=== PATIENT | male | born 1945 | race Caucasian/White ===

== ENCOUNTER 2016-11-23 09:30 | Day surgery (SDC) | payer OTHER, MEDICARE ==
[2016-11-20 13:48] VITALS: BMI 36.2
[2016-11-23] MEDS ORDERED: MIDAZOLAM HCL 2 MG/2 ML SINGLE DOSE VIAL ONE (11:50)
[2016-11-23] MEDS ORDERED: PROPOFOL 20 ML ONE ×2 (11:50)
[2016-11-23] MEDS ORDERED: ROCURONIUM BROMIDE 50 MG/5 ML VIAL ONE (11:58)
[2016-11-23] MEDS ORDERED: LIDOCAINE 1%-EPI 1:100,000 30 ML MDV IJ ONE (12:38)
[2016-11-23] MEDS ORDERED: NEOSTIGMINE METHYLSULFATE 0.5 MG/ML - 10 ML MDV ONE (12:55)
[2016-11-23] MEDS ORDERED: GLYCOPYRROLATE 0.2 MG/1 ML VIAL ONE (12:56)
[2016-11-23] MEDS ORDERED: ePHEDrine SULFATE 50 MG/1 ML AMPULE ONE (12:57)
[2016-11-23] MEDS ORDERED: LIDOCAINE 1%/EPI 1:100000 (20 ML MULTI DOSE VIAL) INF ONE (13:30)
[2016-11-23] MEDS ORDERED: NITROGLYCERIN 2% OINTMENT - 1GM PACKET TD ONE (13:45)
[2016-11-23] MEDS ORDERED: oxyCODONE HCL 5 MG TABLET PO PRN (13:57)
[2016-11-23] MEDS ORDERED: ONDANSETRON 4 MG/2 ML VIAL IVPUSH PRN (13:57)
[2016-11-23] MEDS ORDERED: HEPARIN NA (PORCINE) 5,000 UNITS/ML 1ML VIAL ONE (14:07)
[2016-11-23] MEDS ORDERED: ONDANSETRON 4 MG/2 ML VIAL IVPB PRN (14:13)
[2016-11-23] MEDS ORDERED: morphine CARPU-JECT 10 MG/1 ML DISP.SYRIN IVPUSH PRN (14:13)
[2016-11-23] MEDS ORDERED: LACTATED RINGERS SOLUTION 1,000 ML IV SCH (14:15)
[2016-11-23] MEDS ORDERED: ceFAZolin SODIUM 1 GM VIAL ONE (16:15)
[2016-11-23] MEDS: HEPARIN NA (PORCINE) 5,000 UNITS/ML 1ML VIAL TP SCH ×3 (17:30→23:08)
[2016-11-23] MEDS: CEFAZOLIN 1 GM/D5W 50 ML IVPB SCH ×2 (17:30→21:18)
[2016-11-23] MEDS ORDERED: PATIENT'S OWN MEDICATION (NON-FORMULARY) (Travoprost [Travatan Z] 5 ML) OS SCH (22:00)
[2016-11-23] MEDS ORDERED: ATORVASTATIN CA 80 MG TABLET (FP) PO SCH (22:00)
[2016-11-23] MEDS: oxyCODONE HCL 5 MG TABLET PO PRN (22:28)
[2016-11-24] MEDS ORDERED: oxyCODONE HCL 5 MG TABLET PO ONE (00:51)
[2016-11-24] MEDS: CEFAZOLIN 1 GM/D5W 50 ML IVPB SCH ×2 (02:58→09:14)
[2016-11-24] MEDS: HEPARIN NA (PORCINE) 5,000 UNITS/ML 1ML VIAL TP SCH ×3 (02:59→11:12)
[2016-11-24] MEDS: oxyCODONE HCL 5 MG TABLET PO PRN ×2 (03:01→10:13)
[2016-11-24 06:31] VITALS: BP 125/77; PULSE 78; TEMP 98.4
--- NOTE | 2016-11-24 07:58 | PN ---
Progress Note (short form) - Note Progress Note: Flap 100% viable. Bleeding has stopped, redressed, ambulating, pain well controlled OK for discharge with instructions
--- NOTE | 2016-11-24 09:00 | OP ---
DATE OF OPERATION: 11/23/2016 TITLE OF PROCEDURE: Transfer of previously delayed forehead flap to nose with debridement of temporary AlloDerm dressing on nose, secondary scalp flap reconstruction of forehead defect. ATTENDING SURGEON: Sylvester Richardson MD ANESTHESIA: General endotracheal anesthesia with a total of 20 mL of 1% lidocaine with 1:100,000 epinephrine injected into the surrounding subcutaneous tissues. The patient is marked in the holding area. Is awake and aware of all incisions and resulting scars. Risks, benefits, and alternatives to the procedure, including partial or complete flap failure, are discussed. He understands and agrees to proceed. Patient brought to the operating room and placed in a supine position. Ancef 2 g are given preoperatively. Sequential compression stockings are applied bilaterally. He is prepped and draped in the standard surgical fashion. A timeout is called. Patient, procedure, site, and side are verified. The previously elevated and sewn flap on the forehead is then reelevated by gentle spreading of the scissors in the incision lines and the flap is atraumatically dissected and remobilized. With the flap temporarily sutured to the defect without tension, closure of the forehead is performed. Closure of the forehead is then performed, first by scoring of the galea both medially and laterally. This left a segment superiorly that could not be closed primarily. Secondary scalp flap is then planned and is back cut towards the midline 's peak. The galea of the flap is scored. Flap is inset into the donor site defect and its donor site is able to be closed primarily. This is done with a series of interrupted skin nazanin. The remainder of the donor site is able to be closed with a series of interrupted buried deep dermal 3-0 Monocryl suture followed by a running 3-0 Prolene suture, leaving a wide berth for the flap. The flap appears slightly congested while in position on the nose. Considering the decision is made to not sacrifice additional tissue on the nose until more durable viability of the flap can be determined, the AlloDerm that had been sewn to the defect is then debrided. The sutures along the edge of the AlloDerm and the nasal wound are removed and the edges of the defect are prepared for flap transfer. The flap is inset to the defect with a series of interrupted 5-0 nylon suture. The left edge of the flap is left not inset for purposes of allowing bleeding and drainage to prevent congestion of the flap. is applied to the tip of the flap. The flap's color after slight bleeding and10 minutes while in position is significantly less congested and appears viable with good capillary refill. The donor site is dressed with bacitracin and Xeroform; 4 x 4 gauze is placed around the flap to allow for bleeding to be absorbed. The patient is awoken from anesthesia, transferred to recovery without complication. Jose [id number]
[2016-11-24] MEDS ORDERED: RAMIPRIL 5 MG CAPSULE (FP) PO SCH (10:00)
[2016-11-24] MEDS ORDERED: amLODIPine BESYLATE 2.5 MG TABLET (FP) PO SCH (10:00)
[2016-11-24] MEDS ORDERED: ATENOLOL 50 MG TABLET (FP) PO SCH (10:00)
[2016-11-24] MEDS ORDERED: LATANOPROST 0.005% OPHTH SOLN 2.5ML BOTTLE OU SCH (22:00)
== END 2016-11-24 12:00 | disposition home or self-care (01) ==
LOC: FASU 09:30 → FM/S 14:13 → FASU 11-24 12:00
PROVIDERS: ATTEND Plastic Surgery
PROC: 0HB0XZZ Excision of Scalp Skin, External Approach (ICD-10-PCS; 2016-11-23)
PROC: 0HR1X74 Replacement of Face Skin with Autologous Tissue Substitute, Partial Thickness, External Approach (ICD-10-PCS; principal; 2016-11-23 12:36)
DX: C44.311 Basal cell carcinoma of skin of nose (principal)
CPT/HCPCS: 94760; J1644

== ENCOUNTER 2016-12-20 06:24 | Day surgery (SDC) | payer OTHER, MEDICARE ==
[2016-12-14 12:34] VITALS: BMI 36.2
[2016-12-20] MEDS ORDERED: BACITRACIN 30 GM TUBE TOPICAL OINTMENT ONE (07:17)
[2016-12-20] MEDS ORDERED: LIDOCAINE 1%/EPI 1:100000 (20 ML MULTI DOSE VIAL) ONE (07:17)
[2016-12-20] MEDS ORDERED: SUCCINYLCHOLINE CHLORIDE 200 MG/10 ML VIAL ONE (07:26)
[2016-12-20] MEDS ORDERED: MIDAZOLAM HCL 2 MG/2 ML SINGLE DOSE VIAL ONE (07:26)
[2016-12-20] MEDS ORDERED: PROPOFOL 20 ML ONE (07:26)
[2016-12-20] MEDS ORDERED: ePHEDrine SULFATE 50 MG/1 ML AMPULE ONE (07:54)
[2016-12-20] MEDS ORDERED: ceFAZolin SODIUM 1 GM VIAL ONE (07:57)
[2016-12-20] MEDS ORDERED: DESFLURANE GAS 240 ML BOTTLE IH ONE (07:58)
[2016-12-20] MEDS ORDERED: DEXAMETHASONE SOD PHOSPHATE 4 MG/1 ML VIAL ONE ×2 (08:09→09:41)
[2016-12-20] MEDS ORDERED: ONDANSETRON 4 MG/2 ML VIAL ONE ×2 (08:09→09:41)
[2016-12-20] MEDS ORDERED: LIDOCAINE 1%/EPI 1:100000 (20 ML MULTI DOSE VIAL) INF ONE (08:10)
[2016-12-20] MEDS ORDERED: oxyCODONE HCL 5 MG TABLET PO PRN ×2 (10:12)
[2016-12-20] MEDS ORDERED: ONDANSETRON 4 MG/2 ML VIAL IVPB PRN (10:12)
[2016-12-20] MEDS ORDERED: LACTATED RINGERS SOLUTION 1,000 ML IV SCH (10:15)
--- NOTE | 2016-12-20 11:22 | OP ---
DATE OF OPERATION: 12/20/2016 TITLE OF PROCEDURE: Division and inset of forehead flap reconstruction of nose. PREOPERATIVE DIAGNOSIS: Partially reconstructed defect from basal cell carcinoma to nose. POSTOPERATIVE DIAGNOSIS: Partially reconstructed defect from basal cell carcinoma to nose. ATTENDING SURGEON: Philly River MD ASSISTANTS: There were no assistants. ANESTHESIA: General endotracheal anesthesia. A total of 8 mL of 1% lidocaine with 1:100,000 epinephrine is injected preoperatively into the surgical sites. The patient is marked in the holding area, awake and aware of incisions and resulting scars. Sequential compression stockings and BRIGIDA hose are applied. Two grams of Ancef are given preoperatively. He is brought to the operating room and placed in a supine position. Position carefully checked by surgical and anesthesia teams. He is then prepped and draped in standard surgical fashion. A timeout is called. The patient, procedure, side and site are verified. Prior to division of the two-forehead flap, the flap is constricted at its bridge, noting good retrograde perfusion on the distal portion of the flap on the nose. At this point, the flap is divided at the bridge at a point where adequate flap would be preserved proximally and distally for full insets. The proximal end of the flap at the forehead is then thinned, unfurled. The defect from which it came is excised in preparation for re-inset of a triangular flap. The flap is then trimmed to accommodate the defect. Brow position is anatomic. The flap is then inset with a running 5-0 nylon suture. A small [place] drain is brought out through the superior end of the flap and the flap is pink and viable. Attention is then directed toward the distal part of the flap on the nose where the free-cut edge is bleeding robustly. The flap is unfurled and thinned distally, showing continued good bleeding. The inset edges are also slightly thinned to reduce redundancy. Once the flap is trimmed, thinned and contoured, the assessment is made of the flap. The flap is excellently vascularized and sacrifice of the additional dorsal nasal tissue is safe for reconstruction with the new flap. The dorsal nasal tissue is marked for excision. Excision is continued up the dorsal aesthetic lines of the nose. The forehead flap is then trimmed to conform to the defect and is inset with a series of vertically-mattressed, interrupted 5-0 nylon suture. A small [place] drain is brought out through the superior apex in a radix crease along the superior edge of the nose. The drains are secured with 5-0 nylon drain sutures. The tissues are all pink and viable without any evidence of venous or arterial insufficiency. The flaps are dressed with bacitracin, Xeroform, bulky gauze for drainage. The patient is awoken from anesthesia without complication and transferred to recovery. PHILLY RIVER M.D. [id number]
[2016-12-20 11:26] VITALS: PULSE 74; TEMP 97.5
[2016-12-20] MEDS ORDERED: ACETAMINOPHEN 325 MG TABLET (FP) PO PRN (11:34)
[2016-12-20 12:17] VITALS: BP 128/62
== END 2016-12-20 11:55 | disposition home or self-care (01) ==
LOC: FASU 06:24
PROVIDERS: ATTEND Plastic Surgery
PROC: 0H81XZZ Division of Face Skin, External Approach (ICD-10-PCS; principal; 2016-12-20 08:17)
DX: C44.311 Basal cell carcinoma of skin of nose (principal)
CPT/HCPCS: 94760